=== PATIENT | male | born 1990 | race Caucasian/White ===

== ENCOUNTER 2016-12-25 00:51 | Emergency (ER) | payer OTHER ==
--- NOTE | ~2016-12-25 | ER ---
PATIENT'S NAME: [facility] AGE: 26 Y [address] ROOM: [place] [address] LOCATION: [facility] ADMIT DATE: 12/25/2016 ER/Outpatient Report DISCHARGE DATE: 12/25/2016 FAMILY PHYSICIAN: Dax Oconnor MD ATTENDING PHYSICIAN: Vineet Suarez Time of Arrival: 0051 hours. Time of Evaluation: 0052 hours. CHIEF COMPLAINT: Chest pain. HISTORY OF PRESENT ILLNESS: The patient is a 26-year-old male, who presents to the emergency department today with a chief complaint of chest pain. He reports this started earlier today, this evening. He felt like his heart was racing and concerned he had some shortness of breath afterwards. It is a sharp type pain on the left side of his chest. Denies any nausea or vomiting. No diaphoresis. No diarrhea or constipation. PAST MEDICAL HISTORY: Hypertension. He has been off his hypertension medications for months. PAST SURGICAL HISTORY: Right knee, left ring finger, and nose. SOCIAL HISTORY: The patient chews half a can a day. Drinks 4 to 8 beers at night. Denies any illicit drug use. ALLERGIES: NO KNOWN DRUG ALLERGIES. MEDICATIONS: Bystolic. PRIMARY CARE DOCTOR: Dr. Oconnor. REVIEW OF SYSTEMS: All systems are reviewed by myself and are negative with the exception of those discussed in the HPI and past medical history. PHYSICAL EXAMINATION: VITAL SIGNS: Weight 96.7 kg, blood pressure 170/107, and pulse oximetry 99% PATIENT'S NAME: [facility] AGE: 26 Y [address] ROOM: [place] [address] LOCATION: [facility] ADMIT DATE: 12/25/2016 ER/Outpatient Report DISCHARGE DATE: 12/25/2016 FAMILY PHYSICIAN: Dax Oconnor MD ATTENDING PHYSICIAN: Vineet Suarez on room air. GENERAL: The patient is a 26-year-old male, appears as stated age, in no acute distress at this time. HEENT: Normocephalic and atraumatic. Pupils are equal, round, and reactive to light and accommodation. NECK: Supple. There is no nuchal rigidity. CARDIOVASCULAR: Regular rate and rhythm. No murmurs, rubs, or gallops. LUNGS: Clear to auscultation bilaterally. No wheezes, rales, or rhonchi. ABDOMEN: Soft, nontender, and nondistended. No rebound, rigidity, or guarding. MUSCULOSKELETAL: The patient moves all 4 extremities. SKIN: Warm and dry. There is no rashes or lesions noted. LABORATORY DATA AND X-RAYS: Labs and x-rays are obtained. EKG was obtained, interpreted by myself at 0056 hours, shows sinus rhythm at a rate of 84, normal axis, normal interval; no ST elevation, ST depression, or T-wave inversions. CBC is normal. Coags are normal. CMP is unremarkable. LFTs are normal. Magnesium is normal. Cardiac enzymes are normal. Two-view chest x-ray shows no acute process. IMPRESSION: 1. Chest pain, unclear etiology. 2. Initial visit. EMERGENCY DEPARTMENT COURSE: The patient was brought back to the examination room. Seen and evaluated by myself. Laboratory analysis and imaging are obtained as described above. I have discussed the results with the patient, he has no pain at this time. I do feel he is exceedingly low-risk of acute coronary syndrome at this time. There is no ripping or tearing sensation. There is no radiation to the back. He is not marfanoid. There is no history of DVT or PE. He is not hypoxic. I have discussed I would like him to follow up with Dr. Oconnor in 2 days for reevaluation. I have discussed that he is to take his Bystolic as prescribed. I have discussed return to care instructions including worsening symptoms or any other concerns to return to the emergency department as soon as possible. The patient is agreeable without further questions at this time. DISPOSITION: The patient discharged home in good condition. VINEET SUAREZ DO PATIENT'S NAME: ALLYSSA DING [facility] AGE: 26 Y [address] ROOM: [place], [place] [address] LOCATION: [facility] ADMIT DATE: 12/25/2016 ER/Outpatient Report DISCHARGE DATE: 12/25/2016 FAMILY PHYSICIAN: Dax Oconnor MD ATTENDING PHYSICIAN: Vineet Suarez/dean CAMPBELL: 12/25/2016 01:49:39 /[id number] d: 12/25/16 0412 t: 12/28/16 1900, OUTPATIENT REPORT
[2016-12-25 01:17] LABS: BASOPHIL % 0.4 %; EOSINOPHIL # 0.1 K/uL (0.0-0.5); EOSINOPHIL % 1.7 %; HEMATOCRIT 44.2 % (37.0-53.0); HEMOGLOBIN 15.6 g/dL (12.0-17.0); IMMATURE GRANULOCYTE % 0.3 %; LYMPHOCYTE % 41.7 %; MCH 30.4 pg (27.0-34.0); MCHC 35.3 gm/dL (32.0-36.5); MONOCYTE # 0.6 K/uL (0.0-1.0); MPV 9.8 fl (9.4-12.4); NEUTROPHIL # (ANC) 3.4 K/uL (1.4-9.0); NEUTROPHIL % 46.9 %; NRBC % 0 /100WBC (0-0.00); PLATELET COUNT 158 K/uL (150-450); RBC 5.14 M/uL (4.00-6.00); RDW-CV 12.5 % (11.9-14.6); WBC 7.1 K/uL (4.0-11.0)
[2016-12-25 01:34] LABS: INR - (THERAPEUTIC) 0.93 (0.92-1.07); PROTIME 9.8 SECONDS (9.8-11.4); PTT 26 SECONDS (25-32)
[2016-12-25 01:35] LABS: ALBUMIN 4.2 gm/dL (3.5-5.0); ALK PHOS 47 IU/L (33-138); ALT 40 IU/L (12-78); ANION GAP 11.7 (10.0-19.0); AST 29 IU/L (10-40); BLOOD UREA NITROGEN 13 mg/dL (6-24); CALCIUM 9.2 mg/dL (8.5-10.5); CHLORIDE 106 mMol/L (96-110); CO2 28 mMol/L (22-32); CPK 175 IU/L (35-332); ESTIMATED GFR (MDRD EQUATION) > 60; MAGNESIUM 2.1 mg/dL (1.8-2.6); POTASSIUM 3.7 mMol/L (3.7-5.1); SODIUM 142 mMol/L (135-145); TOTAL BILIRUBIN 0.5 mg/dL (0.0-1.5); TOTAL PROTEIN 7.7 g/dL (6.0-8.4)
== END 2016-12-25 01:54 | disposition disaster alternative care site (69) ==
LOC: GMED 00:51
PROVIDERS: Emergency Medicine
DX: R07.9 Chest pain, unspecified (principal); I10 Essential (primary) hypertension; F17.220 Nicotine dependence, chewing tobacco, uncomplicated; Z98.890 Other specified postprocedural states; Z79.899 Other long term (current) drug therapy